=== PATIENT | female | born 1990 | race Two or more races ===

== ENCOUNTER 2019-12-25 11:57 | Outpatient (CLI) | payer OTHER, SELFPAY ==
[~2019-12-25] VITALS: Ht 175.3 cm; Wt 110.7 kg
[~2019-12-25 11:57] MED LIST: ACET-861 PO; ASPI81TA86 PO; NORV5TAB PO; PRENTAB9 PO; ZOFR4TAB16 PO
[2019-12-25 12:16] VITALS: BP 178/93
[2019-12-25 12:18] VITALS: BP 135/79
[2019-12-25 12:56] VITALS: BP 139/82
[2019-12-25 13:59] VITALS: BP 143/80
--- NOTE | 2019-12-25 17:00 | REP ---
LIMITED OB ULTRASOUND FOR CERVICAL LENGTH AND AMNIOTIC FLUID: Multiple ultrasonographic images of the gravid uterus show a single living intrauterine gestation in the deacon breech presentation. Doppler interrogation of the heart shows a heart rate of 160 beats per minute. The cervix measures 3 cm in length and is closed. The subjective amniotic fluid volume is within the normal limits. The calculated amniotic fluid index is 16.0 with an expected range 9.7 to 21.6. Doppler interrogation of the umbilical artery shows an A/B ratio of 3.4, which is within the normal range. Note is made of a 5.5 x 5.9 x 6.3 cm sized solid nodule in the uterus consistent with myomatous change. Other smaller fibroids are also present. IMPRESSION: Limited OB ultrasound as described above. The cervical length measurement was obtained transvaginally. Electronically Signed by Sandeep Bhatt DO 12/25/2019 07:09 P
--- NOTE | 2019-12-25 21:13 | HPE ---
DATE OF ADMISSION: 12/25/2019 A 29-year-old 3, para 1, abortio 1, last menstrual period (LMP) 07/25/2019, estimated date of confinement (EDC) 04/28/2020 at 22 weeks 2 days, was here yesterday, less than 24 hours, with the lower abdominal pain, shooting pains into the vagina, which are still present today despite taking acetaminophen. Her risk factors is she has chronic hypertension, on medication. She has obesity. She is late entry to care at 22 weeks. She has nausea and vomiting on an intermittent basis, and she has a fibroid uterus anteriorly. PAST HISTORY: In January of 2014, spontaneous vaginal delivery at 42 weeks, male, 5 pounds 11 ounces with chronic hypertension. 2012: Had a spontaneous with dilation and curettage (D and C). LABS: O+, rubella immune, RPR negative, HIV negative, hepatitis negative. Gonorrhea and chlamydia are negative. Her PC ratio is 0.10. Early glucose was 95, hemoglobin 12.5, hematocrit 37.3 and platelets are 299. Electrolytes were normal. Kidney function was normal. Liver function was normal. MaterniT-21 was negative. Urine was 1.020, pH of 5. Her blood pressure initially when she came in was 178/93, but she was just immediately coming in from the outside, was huffing and puffing. Her blood pressure settled down to about 139/82, 143/80, 135/79, respirations were 18, pulse was 100 and temperature 97.8. She did not appear in any distress. She did have the occasional cramping or tightening in the lower abdomen; it was a burning type pain. No change from yesterday when even she took acetaminophen, did not help. She denies any vaginal bleeding or vaginal discharge. She did have a good reactive strip for 22 weeks. No contractions were noted. She had an ultrasound today, which showed a breech presentation with DANIEL of 16.0, the lowest pocket was 2.8 cm. heart rate was 160. The cervical length was measured at 3.0. No funneling was noted. She had two anterior wall fibroids, one was 5.3 x 5.9 x 6.3, the other one maximum diameter was 4.5. They were adjacent to one another and there were lower segment ones. Her placenta is posterior and fundal. No previa. Less than 24 hours ago, she had an ultrasound, did not demonstrate the fibroids and the cervical length was 3.8 with some funneling with abdominal pressure. She also had a second ultrasound yesterday; it did not demonstrate any fibroids, was 2.9 cm and changed to 2.4 with Valsalva but no funneling. The patient's pain is probably related to her myomas; it is rapidly growing. She consistently has nausea and vomiting and is on Phenergan 25 mg. This was reordered for her. She has appointment with [facility] in initial assessment in the end of December. The patient was discharged with precautions and instructions, and expressed understanding of the situation and will monitor her pain. As mentioned, acetaminophen will not alleviate the pain if it becomes more than a 7/10. She may require some narcotic or opioid 808 intervention. The patient was discharged undelivered.
== END 2019-12-25 14:23 | disposition home or self-care (01) ==
LOC: M LDO 11:57
PROVIDERS: ATTEND Obstetrics & Gynecology
DX: O26.892 Other specified pregnancy related conditions, second trimester (principal); R10.9 Unspecified abdominal pain; O34.12 Maternal care for benign tumor of corpus uteri, second trimester; D25.9 Leiomyoma of uterus, unspecified; O32.1XX0 Maternal care for breech presentation, not applicable or unspecified; Z3A.22 22 weeks gestation of pregnancy
CPT/HCPCS: 59025; 76815; 76817; G0378; G0463

== ENCOUNTER 2020-01-04 12:02 | Outpatient (CLI) | payer OTHER ==
[~2020-01-04] VITALS: Ht 175.3 cm; Wt 111.8 kg
[~2020-01-04 12:02] MED LIST changes: +ASPI81TA85 PO; -ASPI81TA86 PO
[2020-01-04 12:19] VITALS: BP 144/81
== END 2020-01-04 13:15 ==
LOC: M LDO 12:02
PROVIDERS: ATTEND Advanced Practice Midwife
DX: O36.8120 Decreased fetal movements, second trimester, not applicable or unspecified (principal); Z3A.23 23 weeks gestation of pregnancy
CPT/HCPCS: G0378; G0463

== ENCOUNTER → 2020-03-26 | Outpatient (CLI) | payer OTHER ==
[~2020-03-26] MED LIST changes: +AMLO1TAB24 PO; -ASPI81TA85 PO; +ASPI81TA86 PO; +DIBU10OI TOP; +DOCU100C16 PO; +IBUP80TA PO
--- NOTE | 2020-03-26 16:27 | REPVR ---
PROCEDURE INFORMATION: Exam: US Biophysical Profile Without Non-Stress Test Exam date and time: 03/26/2020 3:39 PM Age: 29 years old Clinical indication: Abnormal findings; Abnormal ultrasonic screening; Third; ; Additional info: Preg 35+ nonreacitve nst TECHNIQUE: Imaging protocol: US biophysical profile without non-stress testing. COMPARISON: Obs. Limited, DANIEL US 12/25/2019 1:43 PM FINDINGS: Single living intrauterine fetus in cephalic presentation. Placenta: The placenta is posterior with no previa or abruptio. Grade 1 placenta. No previa. The heart rate is 144 bpm. The cervix is closed and measures 3.1 cm in length. BIOPHYSICAL PROFILE: Breathin/2 Gross body movements: 2/2 tone: 2/2 Qualitative amniotic fluid: 2/2 . The amniotic fluid index is 11.6 cm. Two umbilical arteries were visualized. PSV is 55.4 cm/sec EDV is 17.2 cm/sec S/D is 3.22 RI is 0.69 IMPRESSION: 1. Biophysical profile score is normal, 8 out of 8. 2. Umbilical artery S/D = 3.22 3. Multiple hypoechoic myometrial masses are seen in the uterus, likely fibroids, with the largest measuring 4.2 x 4.0 x 3.7 cm. The Electronically signed by: Rene Little On 03/26/2020 16:26:57 PM
== END ==
LOC: M RAD 15:02
PROVIDERS: ATTEND Obstetrics & Gynecology
DX: Z34.83 Encounter for supervision of other normal pregnancy, third trimester (principal); Z3A.35 35 weeks gestation of pregnancy

== ENCOUNTER 2020-04-22 11:55 | Inpatient (IN) | payer OTHER ==
[2020-04-22] VITALS (34 sets, daily range): BP systolic 119–158; BP diastolic 60–98
[~2020-04-22] VITALS: Ht 175.3 cm; Wt 120.4 kg
[~2020-04-22 11:55] MED LIST changes: -AMLO1TAB24 PO; -DIBU10OI TOP; -DOCU100C16 PO; -IBUP80TA PO
--- NOTE | 2020-04-22 13:42 | HPEPDOC ---
Obstetrical History & Physical General Date of Admission Apr 22, 2020 at 11:55 History of Present Illness 29yo at 39+1wks presenting for IOL for CHTN. Denies VB, LOF, DFM, or reg ular ctx's. Denies ESTEVES, chest pain, visual changes, RUQ pain, or edema. 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 Past Medical History Medical History CHTN Obesity Surgical History: Dilatation and Curettage, Tonsilectomy Family History Significant Family History: Hypertension Social History Marital Status: Family situation: Spouse/partner home Psychosocial History: No pertinent psych hx * Smoker: non-smoker Alcohol: Denies Drugs: denies Abuse Violence Screening Have you been hit/kicked/slapp: No Have you been sexually assault: No Imunizations Tdap status: declined (02/05/20) Influenza Status: declined Allergies Coded Allergies: Penicillins (Verified Allergy, Intermediate, hives, 12/24/19) Medications Scheduled Amlodipine Besylate (Norvasc) 5 Mg Tablet, 5 MG PO DAILY Aspirin (Aspir 81) 81 Mg Tablet.dr, 81 MG PO DAILY for pain Physical Examination Physical Examination GENERAL: Alert and oriented times three. CARDS: well-perfused RESP: no exaggerated respiratory effort, no cough HEENT: NC/AT ABDOMEN: Gravid and non-tender to touch. Obese pannus FETUS: Is vertex (VTX) by sterile vaginal examination (SVE), fetus is vertex (VTX) by Jose. SVE: NEFG, cephalic presentation, no abnml vaginal discharge, SVE 4/80/-3 EXTREMITIES: No edema. Vital Signs/I&O Vital Signs Date Time Temp Pulse Resp B/P (MAP) Pulse Ox O2 Delivery O2 Flow Rate FiO2 04/22/20 12:14 97.6 111 20 143/94 (110) Room Air Laboratory Data 24H LABS Laboratory Tests 2 04/22/20 12:21: Serology Scanned Report Hepatitis B Testing Urine Culture: No Growth Pertinent Laboratoy Data Blood Type: O+ RBC Antibody Screen: Negative HIV: Negative Hepatitis B: Negative Hepatitis C: Negative Rapid Plasma Reagin: Nonreactive Rubella: Immune Chlamydia/Gonorrhea: Negative Group B Streptococcus: Negative Quad Screen Test: Negative Glucose Tolerance Test: 138 (3hr normal) Anatomy Ultrasound Ultrasound Date: November 23, 2019 Placenta Location: Anterior Normal Anatomy: Yes Other Ultrasounds [id number] - EFW 2720g, 54th percentile. 5cm anterior fibroid seen Vaginal Examination Dilation: 4 cm Effacement: 80% Station: -3 Cervical Consistency: Soft Cervical Position: Posterior Presentation: Cephalic presentation Assessment Heart Rate (FHR): 125 Variability: Moderate Accelerations: Present Decelerations: None Tocometer Contractions: No Multi-drug resistant Organism: No history of MDRO Assessment/Plan Assessment 29yo at 39+1wks presenting for IOL for CHTN on amolodipine. Noted to have mild-ranging BP, asymptomatic for preeclampsia. SVE 4/80/-3. Cephalic presentation, EFW 3200g, GBS neg. Plan Admit and orient. 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 Diet: clears as tolerated Group B Streptococcus (GBS) negative. Labs and intravenous (IV) per unit protocol. Counseled on Pitocin and induction of labor (IOL). Lactated Ringers (LR): Bolus 500 mL for epidural if desired, then at 125mL/hr. Preeclampsia profile to be completed T&S, CBC, RPR Anticipate normal spontaneous delivery (). C-S as appropriate. NICA HUERTA DO Apr 22, 2020 13:42
[2020-04-22 14:06] LABS: ALT/SGPT 20 U/L (12-78); BILIRUBIN,TOTAL 0.6 MG/DL (0.2-1.0); CREATININE FOR GFR 0.65 MG/DL (0.55-1.30); GLOMERULAR FILTRATION RATE > 60.0 (>60); LDH LACTATE DEHYDROGENASE 183 U/L (84-246); URIC ACID 4.5 MG/DL (2.6-6.0)
[2020-04-22 19:59] LABS: HEMATOCRIT 38.3 % (36.0-47.0); HEMOGLOBIN 12.4 g/dl (12.0-15.5); MEAN CORPUSCULAR HEMOGLOBIN 29.8 pg (27.0-33.0); MEAN CORPUSCULAR HGB CONC 32.4 g/dl (32.0-36.5); MEAN CORPUSCULAR VOLUME 92.1 fl (80.0-96.0); PLATELET COUNT, AUTOMATED 256 10^3/uL (150-450); RED BLOOD COUNT 4.16 10^6/uL (4.00-5.40); WHITE BLOOD COUNT 7.2 10^3/uL (4.0-10.0)
--- NOTE | 2020-04-22 20:42 | IPNPDOC ---
Obstetrical Progress Note Date of Service Apr 22, 2020 Subjective Patient reports she is doing ok. She is interested in sleeping. Objective Vital Signs Date Time Temp Pulse Resp B/P (MAP) Pulse Ox O2 Delivery O2 Flow Rate FiO2 04/22/20 18:17 108 146/76 (99) 04/22/20 18:17 97.8 18 Room Air Assessment Heart Rate (FHR): 150 Variability: Moderate Accelerations: None Decelerations: None Heart Rate Tracing: Category I Tocometer Contractions: Yes Frequency: every 2-5 min. Assessment and Plan Status: Reassuring Group B Streptococcus: Negative Anticipate: Vaginal Delivery Additional Comments FHRT cat I. Pitocin at 12mU/min. Patient declined SVE. Patient declines AROM. Will continue on pitocin protocol at this time. Patient amenable to AROM once reaches 20mU/min on pitocin protocol. Stadol/phenergan ordered for patient to receive when desires although counseled will not recommend if cervical dilation >/=8cm. Patient desires to continue, safe to proceed. NICA HUERTA DO Apr 22, 2020 20:42
[2020-04-22 22:33] LABS: CREATININE,RANDOM URINE 27.8 MG/DL
--- NOTE | 2020-04-22 23:01 | IPNPDOC ---
Obstetrical Progress Note Date of Service Apr 22, 2020 Subjective Patient reports feeling ok. She requests SVE and AROM if possible at this time. Objective Vital Signs Date Time Temp Pulse Resp B/P (MAP) Pulse Ox O2 Delivery O2 Flow Rate FiO2 04/22/20 22:34 84 18 141/77 (98) 04/22/20 20:53 97.7 04/22/20 18:17 Room Air Assessment Heart Rate (FHR): 140 Variability: Moderate Accelerations: None Decelerations: None Heart Rate Tracing: Category I Tocometer Contractions: Yes Frequency: every 2-5 min. Sterile Vaginal Examination Dilation: 5 cm Effacement (%): 80% Station: -2 Cervical Consistency: Soft Cervical Position: Middle Postion/Presentation: Cephalic presentation Assessment and Plan Status: Reassuring Group B Streptococcus: Negative Anticipate: Vaginal Delivery Additional Comments FHRT cat I. SVE 5/80/-2. Patient counseled and consented for AROM. AROM performed notable for clear fluid. Pitocin decreased from 18mU/min to 10mU/min after AROM. BPs mild-ranging, patient asymptomatic. Patient desires to continue, safe to proceed. NICA HUERTA DO Apr 22, 2020 23:01
[2020-04-23] VITALS (24 sets, daily range): BP systolic 117–148; BP diastolic 61–91
[2020-04-23] MEDS ORDERED: FENTANYL 2MCG/ML ROPIVACAINE 0.2% IN 0.9% NACL 100ML IVBAG As Ordered ONE (03:35)
[2020-04-23] MEDS ORDERED: EPIDURAL/PCA KEYS XX PRN (05:45)
[2020-04-23] MEDS ORDERED: REFRIGERATOR IV KEYS XX PRN (05:45)
[2020-04-23] MEDS ORDERED: FENTANYL/ROPIVACAINE/NACL BAG 100 ML EPIDURAL SCH (05:45)
[2020-04-23] MEDS ORDERED: EPIDURAL COMMENT XX SCH (05:45)
[2020-04-23] MEDS ORDERED: NALOXONE INJ 0.4MG/1ML VIAL (J2310 PER 1MG) IV PRN (05:45)
[2020-04-23] MEDS ORDERED: LACTATED RINGER'S 1000 ML IV PRN (05:45)
[2020-04-23] MEDS ORDERED: ONDANSETRON 4MG/2ML VIAL IV PRN (05:45)
[2020-04-23] MEDS ORDERED: diphenhydrAMINE 50MG/ML VIAL (J1200) IV PRN (05:45)
[2020-04-23] MEDS ORDERED: ePHEDrine SULFATE 25 MG/5 ML(5MG/ML) SYRINGE IV PRN (05:45)
--- NOTE | 2020-04-23 05:48 | DNPDOC ---
[facility] Delivery Note Delivery Note DATE OF DELIVERY: 04/23/20 PREDELIVERY DIAGNOSIS: 1. 39+2/7 weeks' gestation 2. Obesity complicating 3. Chronic hypertension complicating POST DELIVERY DIAGNOSIS: Delivered. PROCEDURE: Spontaneous vaginal delivery. ADMINISTRATIVE JOB TITLES: Dr. Nica Huerta ANESTHESIA: Intrathecal ESTIMATED BLOOD LOSS: 100mL. FINDINGS: 7 pound 5 ounce 3320g male infant, Score 9/9. No nuchal cord. No meconium. DELIVERY SUMMARY: Patient had received intrathecal for pain control and was then found to be c/c/+2. With excellent maternal effort, spontaneous vaginal delivery of a viable term male infant. Presentation was OA with restitution to LOT with right shoulder anterior position. Anterior shoulder and body delivered without diffculty. Moderate gush of blood noted with delivery of anterior shoulder. No nuchal cord. No meconium. dried and bulb suctioned on delivery field then placed on maternal abdomen with care transferred to [place] Team. Pitocin IV bolus initiated. Inspection revealed no lacerations. After 6 minutes of delayed cord clamping, three vessel cord clamped x2 and cut by FOB. Third stage expressed due to partial cord avulsion of marginal cord with one partial uterine sweep. Placenta intact. Fundal massage revealed firm uterine tone and hemostasis. Patient and stable and bonding upon my leaving the room. NICA HUERTA DO Apr 23, 2020 05:48
[2020-04-24 06:05] VITALS: BP 145/85
[2020-04-24] MEDS ORDERED: IBUP80TA PO (08:55)
[2020-04-24] MEDS ORDERED: DIBU10OI TOP (08:55)
[2020-04-24] MEDS ORDERED: AMLO1TAB24 PO (08:55)
[2020-04-24] MEDS ORDERED: DOCU100C16 PO (08:55)
--- NOTE | 2020-04-24 13:04 | IPNPDOC ---
Text Note Date of Service The patient was seen on 04/24/20. NOTE This patient has requested the circumcision of their male infant. After discussing the risks and benefits of circumcision, the medical and nonmedical indications, the penile block, and aftercare, expressed understanding of penile block aftercare and bleeding, and signed a consent form. All questions were answered. 20 minute discussion. We await clearance by the weather algorithm scientist. VS,Fishbone, I+O VS, Fishbone, I+O Vital Signs Date Time Temp Pulse Resp B/P (MAP) Pulse Ox O2 Delivery O2 Flow Rate FiO2 04/24/20 06:05 97.8 70 18 145/85 (105) 95 Room Air I&O- Last 24 Hours up to 6 AM 04/24/20 06:00 Intake Total 2164 ml Output Total 1000 ml Balance 1164 ml Maciel Saini MD Apr 24, 2020 13:04
--- NOTE | 2020-04-24 13:54 | DSES ---
DATE OF ADMISSION: 04/22/2020 DATE OF DISCHARGE: BRIEF HISTORY: This lady is a 29-year-old 3 now para 2 was admitted for induction of labor because of chronic hypertension at 39 and one weeks, had an intrathecal placed with spontaneous vaginal delivery of male , 7 pounds 5 ounces, 3320 grams, apgars of 9 and 9 at 1 and 5 minutes respectively. Her admitting hemoglobin 12.4, hematocrit 38.3, and platelets were 256. On discharge, her blood pressure was 145/85, respirations 18, pulse 70, temperature 97.8. She is taking antihypertensives and she is to have a 2 week blood pressure check at [facility] and 6 week check at [facility]. Medications were dispensed at [facility]. All questions were answered. JESSICA
[2020-04-24 18:00] VITALS: BP 142/98
[2020-04-25 05:10] VITALS: BP 139/85
[2020-04-25 08:03] VITALS: BP 130/90
== END 2020-04-25 13:45 | disposition home or self-care (01) | DRG 807 ==
LOC: M LDI 11:55 → M OBS 04-23 07:45
PROVIDERS: ADMIT Registered Nurse
PROC: 3E033VJ Introduction of Other Hormone into Peripheral Vein, Percutaneous Approach (ICD-10-PCS; 2020-04-22)
PROC: 10907ZC Drainage of Amniotic Fluid, Therapeutic from Products of Conception, Via Natural or Artificial Opening (ICD-10-PCS; 2020-04-22)
PROC: 10E0XZZ Delivery of Products of Conception, External Approach (ICD-10-PCS; principal; 2020-04-23)
DX: O10.02 Pre-existing essential hypertension complicating childbirth (principal); Z37.0 Single live birth; O99.214 Obesity complicating childbirth; Z3A.39 39 weeks gestation of pregnancy; O69.89X0 Labor and delivery complicated by other cord complications, not applicable or unspecified; E66.9 Obesity, unspecified